=== PATIENT | female | born 1985 | race Caucasian/White ===

== ENCOUNTER 2018-01-21 11:42 | Emergency (ER) | payer SELFPAY ==
[~2018-01-21] VITALS: Ht 167.6 cm; Wt 70.0 kg
[2018-01-21 12:40] VITALS: BP 99/52; PULSE 71; RESP 17; TEMP 98.3; O2SAT 99
--- NOTE | 2018-01-21 13:02 | PD ---
HPI Chief Complaint: Related Problem Time Seen by Provider: 12:53 Travel History International Travel<30 days: No Contact w/Intl Traveler<30days: No History of Present Illness HPI 32-year-old presents for evaluation of pelvic cramping. Symptoms started 3 days ago. She describes as a mild crampy pain which comes and goes. She reports that she had brown spotting 3 days ago but none since. Denies nausea, vomiting, dysuria, flank pain, fevers or chills. She reports that her last menstrual period was sometime in October. She recently used 3 [id number] home tests and they were all positive. She has no other complaints at this time. [facility] Past Medical History ?: LMP: 10/2017 Past Surgical History Abdominal Surgery: Yes (KIDNEY SX ?) Cholecystectomy: Yes Social History Alcohol Use: Yes (OCC) Tobacco Use: Yes Substance Use: No Allergies-Medications (Allergen,Severity, Reaction): Coded Allergies: NSAIDS (Non-Steroidal Anti-Inflamma (Verified Allergy, Severe, Nausea/ Vomiting, 01/21/18) hydromorphone (Verified Allergy, Unknown, 01/21/18) Reported Meds & Prescriptions Reported Meds & Active Scripts Active No Active Prescriptions or Reported Medications Review of Systems Except as stated in HPI: all other systems reviewed are Neg Physical Exam Narrative GENERAL: Well-developed well-nourished female no acute distress SKIN: Warm and dry. HEAD: Atraumatic. Normocephalic. EYES: Pupils equal and round. No scleral icterus. No injection or drainage. ENT: No nasal bleeding or discharge. Mucous membranes pink and moist. NECK: Trachea midline. No JVD. CARDIOVASCULAR: Regular rate and rhythm. No murmur appreciated. RESPIRATORY: No accessory muscle use. Clear to auscultation. Breath sounds equal bilaterally. GASTROINTESTINAL: Abdomen soft, mild suprapubic tenderness without guarding. MUSCULOSKELETAL: No obvious deformities. No clubbing. No cyanosis. No edema. NEUROLOGICAL: Awake and alert. No obvious cranial nerve deficits. Motor grossly within normal limits. Normal speech. Data Data Last Documented VS Vital Signs Date Time Temp Pulse Resp B/P (MAP) Pulse Ox O2 Delivery O2 Flow Rate FiO2 01/21/18 12:40 98.3 71 17 99/52 (68) 99 Orders Orders Beta Hcg (Quant/Titer) (01/21/18 12:57) Complete Blood Count With Diff (01/21/18 12:57) Comprehensive Metabolic Panel (01/21/18 12:57) Us Pelvis (Ques Preg/Ectopic) (01/21/18 ) Urinalysis - C+S If Indicated (01/21/18 12:57) Iv Access Insert/Monitor (01/21/18 12:57) Ed Urine Pregnancytest Poc (01/21/18 12:57) Complete Rh (01/21/18 12:57) Ed Discharge Order (01/21/18 15:57) Labs Laboratory Tests Test 01/21/18 13:00 01/21/18 13:07 White Blood Count 17.3 TH/MM3 Red Blood Count 4.53 MIL/MM3 Hemoglobin 14.7 GM/DL Hematocrit 43.3 % Mean Corpuscular Volume 95.4 FL Mean Corpuscular Hemoglobin 32.4 PG Mean Corpuscular Hemoglobin Concent 33.9 % Red Cell Distribution Width 13.2 % Platelet Count 344 TH/MM3 Mean Platelet Volume 8.6 FL Neutrophils (%) (Auto) 78.4 % Lymphocytes (%) (Auto) 14.5 % Monocytes (%) (Auto) 5.9 % Eosinophils (%) (Auto) 0.9 % Basophils (%) (Auto) 0.3 % Neutrophils # (Auto) 13.6 TH/MM3 Lymphocytes # (Auto) 2.5 TH/MM3 Monocytes # (Auto) 1.0 TH/MM3 Eosinophils # (Auto) 0.2 TH/MM3 Basophils # (Auto) 0.1 TH/MM3 CBC Comment DIFF FINAL Differential Comment Blood Urea Nitrogen 4 MG/DL Creatinine 0.64 MG/DL Random Glucose 64 MG/DL Total Protein 7.5 GM/DL Albumin 3.7 GM/DL Calcium Level 8.8 MG/DL Alkaline Phosphatase 59 U/L Aspartate Amino Transf (AST/SGOT) 15 U/L Alanine Aminotransferase (ALT/SGPT) 25 U/L Total Bilirubin 0.3 MG/DL Sodium Level 140 MEQ/L Potassium Level 3.8 MEQ/L Chloride Level 107 MEQ/L Carbon Dioxide Level 24.1 MEQ/L Anion Gap 9 MEQ/L Estimat Glomerular Filtration Rate 106 ML/MIN Human Chorionic Gonadotropin, Quant 871440 MIU/ML Urine Color LIGHT-YELLOW Urine Turbidity CLEAR Urine pH 7.5 Urine Specific [place] 1.003 Urine Protein NEG mg/dL Urine Glucose (UA) NEG mg/dL Urine Ketones NEG mg/dL Urine Occult Blood NEG Urine Nitrite NEG Urine Bilirubin NEG Urine Urobilinogen LESS THAN 2.0 MG/DL Urine Leukocyte Esterase NEG Urine WBC LESS THAN 1 /hpf Urine Squamous Epithelial Cells 1 /hpf Microscopic Urinalysis Comment CULT NOT INDICATED MDM Medical Decision Making Medical Screen Exam Complete: Yes Emergency Medical Condition: Yes Medical Record Reviewed: Yes Differential Diagnosis Intrauterine , ectopic , missed , cystitis, pelvic inflammatory disease Narrative Course Plan is for lab work, urinalysis, ultrasound. CBC reveals WBC count of 17.3, CMP is unremarkable. Beta-hCG is 514224. Rh+. Pelvic ultrasound revealsCONCLUSION: 1. Intrauterine estimated at 8 weeks 2 days. 2. Small cystic structure left ovary measures 2.0 cm. heart tones 170. At this point in time the plan is to discharge the patient and have her follow- up with an EMERGENCY MANAGEMENT SYSTEM DIRECTOR. She is stable for discharge. Diagnosis Primary Impression: Intrauterine Referrals: [facility] [employer] Operator Additional Instructions: Follow-up with an wash and greaser on a routine basis. Begin vitamins. Avoid tobacco use. Return for any emergent medical conditions. Med/Other Pt SpecificInfo: No Change to Meds Scripts No Active Prescriptions or Reported Meds Disposition: 01 DISCHARGE HOME Condition: Stable Pedro Dudley January 21, 2018 13:02
[2018-01-21 13:21] LABS: AUTOMATED NEUTROPHIL # 13.6 TH/MM3 (1.8-7.7); BASOPHIL # 0.1 TH/MM3 (0-0.2); BASOPHIL % 0.3 % (0.0-2.0); EOSINOPHIL # 0.2 TH/MM3 (0-0.4); EOSINOPHIL % 0.9 % (0.0-4.0); HEMATOCRIT 43.3 % (35.0-46.0); HEMOGLOBIN 14.7 GM/DL (11.6-15.3); LYMPH % 14.5 % (9.0-44.0); LYMPHOCYTE # 2.5 TH/MM3 (1.0-4.8); MEAN CELL VOLUME 95.4 FL (80.0-100.0); MEAN CORPUSCULAR HEMOGLOBIN 32.4 PG (27.0-34.0); MEAN CORPUSCULAR HGB CONC 33.9 % (32.0-36.0); MEAN PLATELET VOLUME 8.6 FL (7.0-11.0); MONO % 5.9 % (0.0-8.0); NEUT % 78.4 % (16.0-70.0); PLATELET COUNT 344 TH/MM3 (150-450); RED BLOOD COUNT 4.53 MIL/MM3 (4.00-5.30); RED CELL DISTRIBUTION WIDTH 13.2 % (11.6-17.2); WHITE BLOOD COUNT 17.3 TH/MM3 (4.0-11.0)
[2018-01-21 13:27] LABS: BILIRUBIN, URINE NEG (NEG); BLOOD, URINE NEG (NEG); GLUCOSE,URINE NEG (NEG); KETONE, URINE NEG (NEG); NITRITE,URINE NEG (NEG); PH, URINE 7.5 (5.0-8.5); SQUAMOUS EPITHELIAL CELL URINE 1 /hpf (0-5); URINE COLOR LIGHT-YELLOW (YELLW/STRAW); URINE LEUKOCYTE ESTERASE NEG (NEG)
[2018-01-21 13:39] LABS: ALBUMIN 3.7 GM/DL (3.4-5.0); ALT (GPT) 25 U/L (10-53); AST (GOT) 15 U/L (15-37); BICARBONATE 24.1 MEQ/L (21.0-32.0); BLOOD UREA NITROGEN 4 MG/DL (7-18); CALCIUM 8.8 MG/DL (8.5-10.1); CHLORIDE 107 MEQ/L (98-107); CREATININE 0.64 MG/DL (0.50-1.00); GLOMERULAR FILTRATION RATE 106 ML/MIN (>89); GLUCOSE,RANDOM 64 MG/DL (74-106); SODIUM (NA) 140 MEQ/L (136-145)
[2018-01-21 13:55] LABS: ALKALINE PHOSPHATASE 59 U/L (45-117); TOTAL BILIRUBIN ADULT 0.3 MG/DL (0.2-1.0); TOTAL PROTEIN 7.5 GM/DL (6.4-8.2)
--- NOTE | 2018-01-21 15:49 | RADRPT ---
EXAM DATE: 01/21/2018 2:37 PM EDT AGE/SEX: 32 years / Female INDICATIONS: Left pelvic pain. CLINICAL DATA: This is the patient's initial encounter. Patient reports that signs and symptoms have been present for 3 days and indicates a pain score of 1/10. MEDICAL/SURGICAL HISTORY: . Kidney stones. Cholecystectomy. Tonsillectomy. COMPARISON: No prior [facility] exams available for comparison. MEASUREMENTS: Uterus:__11.8 x 5.8 x 7.3 cm Endometrial Stripe:__>20 mm Right Ovary:__ 3.3 x 2.3 x 2.2 cm Left Ovary:__ 4.4 x 1.8 x 3.2 cm FINDINGS: Uterus: Yolk sac and gestational sac seen. [place]-rump length correlates to 8 week 2 day . F etal heart tones 170 bpm. Right Ovary: Unremarkable Left Ovary: Small cystic structure measures 16 x 12 x 20 mm. Other: No free fluid. CONCLUSION: 1. Intrauterine estimated at 8 weeks 2 days. 2. Small cystic structure left ovary measures 2.0 cm. Electronically signed by: Hakan Herrera MD 01/21/2018 3:48 PM EDT
== END 2018-01-21 16:35 | disposition home or self-care (01) ==
LOC: NEPD 11:42
DX: O34.81 Maternal care for other abnormalities of pelvic organs, first trimester (principal); N83.202 Unspecified ovarian cyst, left side; Z3A.08 8 weeks gestation of pregnancy
CPT/HCPCS: 76700; 80053; 81001; 84702; 84703; 85025; 86901